=== PATIENT | male | born 1930 | race Caucasian/White ===

== ENCOUNTER 2017-12-09 09:19 | Inpatient (IN) | payer OTHER ==
[~2017-12-09] VITALS: Ht 182.9 cm; Wt 84.1 kg
[2017-12-09] MEDS ORDERED: ASPIR 8181 MG PO (09:53)
[2017-12-09] MEDS ORDERED: AZELASTINE137 MCG/Ac (09:53)
[2017-12-09] MEDS ORDERED: LIPITOR80 MG PO (09:53)
[2017-12-09] MEDS ORDERED: CLOBETASOL PROP0.05% TOP (09:54)
[2017-12-09] MEDS ORDERED: VITAMIN D32000 I2 PO (09:54)
[2017-12-09] MEDS ORDERED: PROZ20 PO (09:55)
[2017-12-09] MEDS ORDERED: PLA75 PO (09:55)
[2017-12-09] MEDS ORDERED: VITAMIN B121000 MCG PO (09:55)
[2017-12-09] MEDS ORDERED: FLONS (09:56)
[2017-12-09] MEDS ORDERED: IMD60 PO (09:56)
[2017-12-09] MEDS ORDERED: LASIX20 MG PO (09:56)
[2017-12-09] MEDS ORDERED: ADVAIR DISKUS 51 AER INH (09:56)
[2017-12-09] MEDS ORDERED: PROTONIX40 MG PO (09:57)
[2017-12-09] MEDS ORDERED: KLOR-CON M1010 MEQ PO (09:57)
[2017-12-09] MEDS ORDERED: LEVOXYL0.05 MG PO (09:57)
[2017-12-09] MEDS ORDERED: PREDNISONE1 MG PO (09:58)
[2017-12-09] MEDS ORDERED: PREDNISONE20 MG PO (10:00)
[2017-12-09] MEDS ORDERED: FLO4 PO (10:00)
[2017-12-09] MEDS ORDERED: ARICEPT5 MG PO (10:01)
[2017-12-09] MEDS ORDERED: CENTRUM SILVER1 EAC4 PO (10:01)
[2017-12-09 10:07] LABS: BASOPHIL % 0.4 % (0-2); PLATELET COUNT 217 x10^3mcL (130-400)
[2017-12-09 10:12] LABS: RED CELL DISTRIBUTION WIDTH 15.2 % (11.5-14.5)
[2017-12-09 10:40] LABS: CALCIUM 9.3 mg/dL (8.5-10.1); CARBON DIOXIDE 25.6 mmol/L (21-32); CHLORIDE SERUM 106 mmol/L (98-107); CREATININE SERUM 0.9 mg/dL (0.7-1.3); GLUCOSE SERUM 161 mg/dL (74-106); POTASSIUM SERUM 3.8 mmol/L (3.5-5.1); SODIUM SERUM 141 mmol/L (136-145)
[2017-12-09 10:43] LABS: ALKALINE PHOSPHATASE 71 U/L (46-116); ALT/SGPT 29 U/L (16-63); AST/SGOT 16 U/L (15-37); BILIRUBIN TOTAL 1.03 mg/dL (0.20-1.00); TOTAL PROTEIN, SERUM 6.5 g/dL (6.4-8.2)
[2017-12-09 10:49] LABS: ALBUMIN 3.2 g/dL (3.4-5.0)
[2017-12-09 14:25] VITALS: BP 171/80
[2017-12-09 14:27] LABS: MAGNESIUM 2.1 mg/dL (1.8-2.4); PHOSPHOROUS 2.7 mg/dL (2.5-4.9)
[2017-12-09 14:31] LABS: T3 TOTAL 0.68 ng/mL
[2017-12-09 14:43] LABS: FREE T4 1.17 ng/dL (0.76-1.46); FREE THYROXINE INDEX 2.6 ug/dL (1.4-4.5); T4(THYROXINE) 7.1 ug/dL (4.7-13.3)
[2017-12-09 16:11] VITALS: BP 134/67
[2017-12-09] MEDS ORDERED: NITROSTAT0.4 MG SL (19:09)
[2017-12-09] MEDS ORDERED: MUPIROCIN2% TP (19:13)
[2017-12-09 21:12] LABS: microscopic required? NO
[2017-12-09 21:26] LABS: urine erythrocyte NEGATIVE (NEGATIVE)
[2017-12-09 21:37] LABS: AMPHETAMINE QUAL UR NONE DETECTED (See below)
[2017-12-10 00:29] VITALS: BP 134/67
[2017-12-10 05:20] VITALS: BP 110/53
[2017-12-10 08:15] VITALS: BP 109/55
[2017-12-10 16:53] VITALS: BP 123/58
[2017-12-10 21:11] VITALS: BP 134/55
[2017-12-11 06:13] VITALS: BP 97/67
[2017-12-11 07:02] LABS: CALCIUM 9.6 mg/dL (8.5-10.1); CARBON DIOXIDE 25.1 mmol/L (21-32); CHLORIDE SERUM 108 mmol/L (98-107); MAGNESIUM 2.1 mg/dL (1.8-2.4); PHOSPHOROUS 3.7 mg/dL (2.5-4.9); POTASSIUM SERUM 4.4 mmol/L (3.5-5.1); SODIUM SERUM 146 mmol/L (136-145)
[2017-12-11 07:10] LABS: GLUCOSE SERUM 59 mg/dL (74-106)
[2017-12-11 07:14] LABS: BASOPHIL % 0.4 % (0-2); PLATELET COUNT 224 x10^3mcL (130-400); RED CELL DISTRIBUTION WIDTH 15.4 % (11.5-14.5)
[2017-12-11 11:19] VITALS: Ht 182.9 cm; Wt 84.1 kg
[2017-12-11 14:00] VITALS: BP 150/59
[2017-12-11 17:50] VITALS: BP 151/58
[2017-12-12 05:43] VITALS: BP 124/58
[2017-12-12 06:41] LABS: BASOPHIL % 0.3 % (0-2); PLATELET COUNT 199 x10^3mcL (130-400)
[2017-12-12 06:47] LABS: RED CELL DISTRIBUTION WIDTH 15.1 % (11.5-14.5)
[2017-12-12 07:01] LABS: CALCIUM 9.2 mg/dL (8.5-10.1); CARBON DIOXIDE 27.1 mmol/L (21-32); CHLORIDE SERUM 109 mmol/L (98-107); CREATININE SERUM 0.8 mg/dL (0.7-1.3); GLUCOSE SERUM 178 mg/dL (74-106); PHOSPHOROUS 2.5 mg/dL (2.5-4.9); POTASSIUM SERUM 3.7 mmol/L (3.5-5.1); SODIUM SERUM 144 mmol/L (136-145)
[2017-12-12 09:10] VITALS: BP 138/67
[2017-12-12 13:06] VITALS: BP 135/68
[2017-12-12 13:50] VITALS: BP 135/68
[2017-12-12 17:08] VITALS: BP 116/54
[2017-12-12 20:52] VITALS: BP 132/52
[2017-12-13 05:12] VITALS: BP 140/59
[2017-12-13 06:58] LABS: BASOPHIL % 0.6 % (0-2); PLATELET COUNT 197 x10^3mcL (130-400)
[2017-12-13 07:09] LABS: ALKALINE PHOSPHATASE 66 U/L (46-116); ALT/SGPT 32 U/L (16-63); AST/SGOT 20 U/L (15-37); BILIRUBIN DIRECT 0.18 mg/dL (0.0-0.2); BILIRUBIN TOTAL 0.63 mg/dL (0.20-1.00); CALCIUM 9.7 mg/dL (8.5-10.1); CARBON DIOXIDE 32.1 mmol/L (21-32); CHLORIDE SERUM 107 mmol/L (98-107); CREATININE SERUM 0.8 mg/dL (0.7-1.3); GLUCOSE SERUM 134 mg/dL (74-106); POTASSIUM SERUM 3.8 mmol/L (3.5-5.1); SODIUM SERUM 144 mmol/L (136-145)
[2017-12-13 07:12] LABS: ALBUMIN 2.9 g/dL (3.4-5.0); TOTAL PROTEIN, SERUM 6.1 g/dL (6.4-8.2)
[2017-12-13 07:22] LABS: RED CELL DISTRIBUTION WIDTH 15.3 % (11.5-14.5)
[2017-12-13 10:36] VITALS: BP 113/53
[2017-12-13 12:25] VITALS: BP 125/58
[2017-12-13 17:48] VITALS: BP 128/70
[2017-12-13 19:24] VITALS: BP 116/57
[2017-12-14 05:11] VITALS: BP 130/51
[2017-12-14 06:17] LABS: CALCIUM 9.7 mg/dL (8.5-10.1); CARBON DIOXIDE 30.6 mmol/L (21-32); CHLORIDE SERUM 103 mmol/L (98-107); CREATININE SERUM 0.9 mg/dL (0.7-1.3); GLUCOSE SERUM 113 mg/dL (74-106); POTASSIUM SERUM 3.9 mmol/L (3.5-5.1); SODIUM SERUM 141 mmol/L (136-145)
[2017-12-14 06:20] LABS: BASOPHIL % 0.5 % (0-2); PLATELET COUNT 185 x10^3mcL (130-400); RED CELL DISTRIBUTION WIDTH 15.4 % (11.5-14.5)
[2017-12-14 08:48] VITALS: BP 128/72
[2017-12-14 12:32] VITALS: BP 133/76
[2017-12-14] MEDS ORDERED: REM15 NG (13:39)
[2017-12-14] MEDS ORDERED: RIS0.25 NG (13:39)
[2017-12-14] MEDS ORDERED: LORAZEPAM0.5 MG NG (13:40)
[2017-12-14 15:13] VITALS: BP 133/76
[2017-12-14 16:44] VITALS: BP 123/60
[2017-12-14 20:16] VITALS: BP 130/61
== END 2017-12-14 21:53 | DRG 56 ==
LOC: ED 09:19 → DU 11:23
PROVIDERS: Emergency Medicine; Family Medicine; Internal Medicine
DX: G30.9 Alzheimer's disease, unspecified (principal); G93.41 Metabolic encephalopathy; N17.0 Acute kidney failure with tubular necrosis; I67.4 Hypertensive encephalopathy; E44.0 Moderate protein-calorie malnutrition; F13.921 Sedative, hypnotic or anxiolytic use, unspecified with intoxication delirium; F32.3 Major depressive disorder, single episode, severe with psychotic features; E16.1 Other hypoglycemia; I25.10 Atherosclerotic heart disease of native coronary artery without angina pectoris; I10 Essential (primary) hypertension; I49.5 Sick sinus syndrome; F02.80 Dementia in other diseases classified elsewhere, unspecified severity, without behavioral disturbance, psychotic disturbance, mood disturbance, and anxiety; G47.33 Obstructive sleep apnea (adult) (pediatric); J84.10 Pulmonary fibrosis, unspecified; E03.9 Hypothyroidism, unspecified; I25.2 Old myocardial infarction; Z95.0 Presence of cardiac pacemaker; Z96.642 Presence of left artificial hip joint; Z68.25 Body mass index [BMI] 25.0-25.9, adult; Z99.81 Dependence on supplemental oxygen
CPT/HCPCS: 36600; 82962; 83880; 84439; 92610-GN; 94150; 97116-GP; 97530-GP; B4164; G0480; J3490; J7030; J7042; J7512; J7620; Q0092